=== PATIENT | male | born 1930 | race Caucasian/White ===

== ENCOUNTER → 2017-01-28 | Outpatient (CLI) | payer OTHER | END | disposition home or self-care (01) | LOC: RAD 10:00 | DX: I70.0 Atherosclerosis of aorta (principal); I25.10 Atherosclerotic heart disease of native coronary artery without angina pectoris; I70.1 Atherosclerosis of renal artery; N28.1 Cyst of kidney, acquired; N20.0 Calculus of kidney; I77.89 Other specified disorders of arteries and arterioles; R91.8 Other nonspecific abnormal finding of lung field; K86.89 Other specified diseases of pancreas; K63.89 Other specified diseases of intestine; R93.2 Abnormal findings on diagnostic imaging of liver and biliary tract; C83.00 Small cell B-cell lymphoma, unspecified site; R17 Unspecified jaundice | CPT/HCPCS: 71260; 74177 ==